=== PATIENT | female | born 1985 | race African-American/Black ===

== ENCOUNTER 2022-10-10 17:34 | Emergency (ER) | payer SELFPAY ==
[~2022-10-10] VITALS: Ht 172.7 cm; Wt 102.1 kg
[~2022-10-10 17:34] MED LIST: CEPHALEXIN500 MG PO
[2022-10-10 18:06] VITALS: O2SAT 97
[2022-10-10] MEDS ORDERED: AUGMENTIN 500-1 EACH PO (18:42)
[2022-10-10] MEDS ORDERED: BACTRIM DS TAB1 EACH PO (18:42)
== END 2022-10-10 18:56 | disposition home or self-care (01) ==
LOC: FSED 17:43
DX: L02.211 Cutaneous abscess of abdominal wall (principal)
CPT/HCPCS: 10060; 99283